=== PATIENT | female | born 1955 | race African-American/Black ===

== ENCOUNTER 2019-05-19 06:30 | Day surgery (SDC) | payer MEDICARE, OTHER ==
--- NOTE | 2019-05-14 13:35 | Pre-Procedure Note/Attestation ---
Pre-Procedure Note/Attestation Complete Prior to Procedure Planned Procedure: left Procedure Narrative: Cataract extraction with IOL implant left eye Indications for Procedure Pre-Operative Diagnosis: Cortical/Nuclear sclerotic cataract left eye Attestation I attest that I discussed the nature of the procedure; its benefits; risks and complications; and alternatives (and the risks and benefits of such alternatives ), prior to the procedure, with the patient (or the patient's legal auto service representative). I attest that, if there was a reasonable possibility of needing a blood transfusion, the patient (or the patient's legal auto service representative) was given the [facility] standardized written summary, pursuant to the Wali Bhanu Blood Safety Act ([place] Health and Safety Code # 1645, as amended). I attest that I re-evaluated the patient just prior to the surgery and that there has been no change in the patient's H&P, except as documented below: Juan David Roe MD May 14, 2019 13:35
--- NOTE | 2019-05-14 13:37 | Opthalmology H&P ---
Ophthalmology H&P H&P Chief Complaint: decreased vision in left eye HPI Vision Affects Ability to: read, focus/use eyes together, manage personal affairs HPI Narrative Blurry vision Exam Visual Acuity: OD 20/50 OS 20/60 Tension: OD 12 OS 13 Eye Exam: normal OU: external exam, palpebral fissure-width, marginal reflex distance, levator function, corneas, anterior chambers, fundus exam; findings: lens - CC/NS Cataracts OU Assessment/Plan Treatment Plan: cataract extraction w/ lens implant Goals of Treatment: improvement of vision, enhance quality of life Attestation Attestation The risks and benefits of the surgery as well as alternative procedures were explained to the patient in detail. Juan David Roe MD May 14, 2019 13:37
[~2019-05-19] VITALS: Ht 160 cm; Wt 63.5 kg
[2019-05-19] VITALS (7 sets, daily range): BP systolic 112–123; BP diastolic 73–83
[2019-05-19] MEDS ORDERED: Proparacaine 0.5% Opth Soln 15ml LEFT EYE ONE (07:00)
[2019-05-19] MEDS ORDERED: Akten 3.5% 1ml Btl LEFT EYE ONE (07:00)
[2019-05-19] MEDS ORDERED: Tetracaine 0.5% Opth 4ml Soln LEFT EYE ONE (07:00)
[2019-05-19] MEDS ORDERED: CHLORTHALIDONE25 MG ORAL (07:55)
[2019-05-19] MEDS ORDERED: MULTIVITAMINS1 EAC2 ORAL (07:55)
[2019-05-19] MEDS ORDERED: POTASSIUM99 M3 PO (07:56)
[2019-05-19] MEDS ORDERED: vit D3 PO (07:59)
[2019-05-19] MEDS ORDERED: CALCIUM500 M3 PO (07:59)
[2019-05-19] MEDS: Diclofenac Sod 0.1% Op Soln LEFT EYE SCH ×3 (08:01→08:26)
[2019-05-19] MEDS: Cyclopentolate 1% Opth Sol 2ml LEFT EYE SCH ×3 (08:01→08:27)
[2019-05-19] MEDS: Tobramycin Op Soln 0.3% 5ml LEFT EYE SCH ×3 (08:01→08:26)
[2019-05-19] MEDS: Phenylephrine 10% Opth Soln 5ml LEFT EYE SCH ×3 (08:01→08:27)
[2019-05-19] MEDS: Tropicamide 1% Opth 15ml Soln LEFT EYE SCH ×3 (08:01→08:26)
[2019-05-19] MEDS ORDERED: LR 1000ml 1,000 ML IVLG SCH (09:48)
--- NOTE | 2019-05-19 09:51 | Anethesia Preoperative Eval ---
Anesthesia Pre-op PMH/ROS General Date of Evaluation: May 19, 2019 Time of Evaluation: 10:19 Anesthesiologist: Caryl ASA Score: ASA 3 Mallampati Score Class I : Soft palate, uvula, fauces, pillars visible Class II: Soft palate, uvula, fauces visible Class III: Soft palate, base of uvula visible Class IV: Only hard plate visible Mallampati Classification: Class II Surgeon: Jyothi Diagnosis: Cataract OS Surgical Procedure: Cat Ext IOL OS Anesthesia History: none Family History: no anesthesia problems Allergies: Coded Allergies: No Known Allergies (Unverified , 05/14/19) Medications: see eMAR Patient NPO?: Yes Past Medical History Cardiovascular: Reports: HTN, other - HL HEENT: Reports: cataract (L), cataract (R) Hematology/Immune: Reports: other - Hx Polioi Anesthesia Pre-op Phys. Exam Physician Exam Last Vital Signs Date Time Temp Pulse Resp B/P (MAP) Pulse Ox O2 Delivery O2 Flow Rate FiO2 05/19/19 08:19 Room Air 05/19/19 08:05 97.7 70 18 115/73 97 Constitutional: NAD Neurologic: CN 2-12 intact Cardiovascular: RRR Respiratory: CTA Gastrointestinal: S/NT/ND Airway Exam Mallampati Score: Class II MO: limited ROM: limited Teeth: missing, intact Anesthesia Pre-op A/P Risk Assessment & Plan Assessment: ASA 3 Plan: GA Status Change Before Surgery: No Hermes Hutson MD May 19, 2019 09:51
--- NOTE | 2019-05-19 09:52 | Immediate Post-Op Evaluation ---
Immediate Post-Op Evalulation Immediate Post-Op Evalulation Procedure: Cat Ext IOL OS Date of Evaluation: May 19, 2019 Time of Evaluation: 11:12 IV Fluids: 700 LR Blood Products: 0 Estimated Blood Loss: 1 Urinary Output: 0 Blood Pressure Systolic: 126 Blood Pressure Diastolic: 75 Pulse Rate: 68 Respiratory Rate: 16 O2 Sat by Pulse Oximetry: 98 Temperature (Fahrenheit): 98.4 Pain Score (1-10): 1 Nausea: No Vomiting: No Complications 0 Patient Status: awake, reacts, patent, none Hydration Status: adequate Hermes Hutson MD May 19, 2019 09:52
--- NOTE | 2019-05-19 09:53 | 48 Hour Post Anesthesia Eval ---
Post Anesthesia Evaluation Procedure: Cat Ext IOL OS Date of Evaluation: May 19, 2019 Time of Evaluation: 13:21 Blood Pressure Systolic: 117 0: 73 Pulse Rate: 71 Respiratory Rate: 18 Temperature (Fahrenheit): 98.4 O2 Sat by Pulse Oximetry: 96 Airway: patent Nausea: No Vomiting: No Pain Intensity: 1 Hydration Status: adequate Cardiopulmonary Status: Stable Mental Status/LOC: patient returned to baseline Follow-up Care/Observations: 0 Post-Anesthesia Complications: 0 Follow-up care needed: ready to discharge Hermes Hutson MD May 19, 2019 09:53
[2019-05-19] MEDS ORDERED: fentaNYL 100 mcg/2 mL IV PRN (10:00)
[2019-05-19] MEDS ORDERED: Dexamethasone 4mg/ml vial ONE (10:00)
[2019-05-19] MEDS ORDERED: Propofol 200mg/20ml IV ONE (10:00)
[2019-05-19] MEDS ORDERED: Pilocarpine 1% Opth 15ml Soln ONE (10:00)
[2019-05-19] MEDS ORDERED: DiphenhydrAMINE 50mg/ml Inj IVP PRN (10:00)
[2019-05-19] MEDS ORDERED: LORazepam Inj 2mg/ml 1ml IV PRN (10:00)
[2019-05-19] MEDS ORDERED: LR 1000ml ONE (10:00)
[2019-05-19] MEDS ORDERED: Polysporin Oint 15gm TOPIC ONE (10:00)
[2019-05-19] MEDS ORDERED: Meperidine 50mg/ml Inj(FOR RIGORS ONLY) IVP PRN (10:00)
[2019-05-19] MEDS ORDERED: oxyCODONE HCL/Acetaminophen 5/325mg ORAL PRN (10:00)
[2019-05-19] MEDS ORDERED: Midazolam 2mg/2ml Inj IVP PRN (10:00)
[2019-05-19] MEDS ORDERED: Labetalol 5mg/ml 20ml vial IV PRN (10:00)
[2019-05-19] MEDS ORDERED: HYDROcodone/Acetamin 5/325 tab ORAL PRN (10:00)
[2019-05-19] MEDS ORDERED: Atropine Sulfate 0.4mg/ml inj IVP PRN (10:00)
[2019-05-19] MEDS ORDERED: Ketorolac 30mg Inj IV PRN ×2 (10:00)
[2019-05-19] MEDS ORDERED: HYDROcodone/Acetamin 7.5/325 tab ORAL PRN (10:00)
[2019-05-19] MEDS ORDERED: Metoclopramide 10mg/2ml Inj IVP PRN (10:00)
[2019-05-19] MEDS ORDERED: Hydromorphone 0.5mg/0.5ml inj IVP PRN (10:00)
[2019-05-19] MEDS ORDERED: Pred Forte 1% Opth Susp 1ml ONE (10:00)
[2019-05-19] MEDS ORDERED: Lidocaine 1% MPF 10mg/ml 5ml ONE (10:45)
[2019-05-19] MEDS ORDERED: BSS 15ml BTL ONE (13:20)
[2019-05-19] MEDS ORDERED: Povidone-Iodine 5% opth solution ONE (13:20)
[2019-05-19] MEDS ORDERED: BSS 500ml btl ONE (13:20)
[2019-05-19] MEDS ORDERED: EPINEPHrine 1mg/1ml Amp ONE (13:20)
[2019-05-19] MEDS ORDERED: Sodium Hyaluronate 14 mg/ml 0.85ml ONE (13:20)
--- NOTE | 2019-05-20 12:49 | Brief Operative Note ---
Immediate Post Operative Note Operative Note Chief Complaint: Blurry vision Pre-op Diagnosis: Cortical/Nuclear sclerotic cataract left eye Procedure: Cataract extraction with IOL implant left eye Post-op Diagnosis: Pseudophakia OS Findings: consistent w/pre-op dx studies Surgeon: Juan David Roe MD Anesthesiologist: Hermes Hutson MD Anesthesia: MAC Specimen: none Complications: none Condition: stable Fluids: LR Estimated Blood Loss: none Drains: none Implant(s) used?: Yes - IOL OS Juan David Roe MD May 20, 2019 12:49
--- NOTE | 2019-05-20 12:52 | Operative Note - PDOC ---
Operative Note Operative Note Date of Operation/Procedure: May 19, 2019 Chief Complaint: Blurry vision Pre-op Diagnosis: Cortical/Nuclear sclerotic cataract left eye Procedure: Cataract extraction with IOL implant left eye Post-op Diagnosis: Pseudophakia OS Operative Findings: consistent w/pre-op dx studies Surgeon: Juan David Roe MD Anesthesiologist: Hermes Hutson MD Anesthesia: MAC Specimen: none Complications: none Condition: stable Fluids: LR Estimated Blood Loss: none Drains: none Implant(s) used?: Yes - IOL OS Indications for Procedure Cortical/Nuclear sclerotic cataract left eye Description of Procedure This patient has been complaining visually significant cataract in the left eye with the best corrected visual acuity of 20/60 under moderate glare conditions worse. The patient complains of difficulties with glare in performing activities of daily living and wants to manage personal affairs with comfort and accuracy and see well enough to move with safety at home and outdoors. The risks, benefits and alternatives of the procedure were discussed with the patient in the office prior to scheduling surgery. All questions from the patient were answered after the surgical procedure was explained in detail. The risks of the procedure as explained to the patient include, but are not limited to, pain, infection, bleeding, loss of vision, retinal detachment, need for further surgery, loss of lens nucleus, double vision, etc. Alternative procedures were discussed which include, to do nothing or seek a second opinion. Informed consent for this procedure was obtained from the patient. The patient was referred to a primary care physician for a cardiopulmonary clearance prior to surgery, after proper evaluation was done patient was properly scheduled for outpatient surgery. The patient was brought to the operating room where the anesthesiologist established I.V. lines and cardiac monitoring leads. Mild intravenous sedation was administered. The patient was then prepared with a 5% solution of povidone -iodine to the conjunctival fornix and lashes, and a 5% solution of povidone- iodine to the lids and periorbital skin. The patient was then draped in the usual sterile fashion. A lid speculum was then placed in the operative eye. A keratome blade was then used to create a biplanar incision into the anterior chamber. Viscoelastics was then instilled into the anterior chamber. A 3-mm single pass clear corneal incision was made just anterior to the vascular arcade of the temporal limbus using a keratome. Anterior capsulorrhexis was created. The nucleus was hydrodissected and hydrodelineated, and was freely movable in the capsular bag. The nucleus was then phacoemulsified. Following the deep groove formation, the lens was split bimanually and epicortex removed under vacuum burst-mode phacoemulsification. Peripheral cortex was removed with the irrigation and aspiration handpiece. The capsular bag was expanded with viscoelastic. The intraocular lens was then inspected for right power and size and thought to be satisfactory. The implant was inspected under the microscope and found to be free of defects. The implant was inserted into the cartridge system under viscoelastic and placed in the capsular bag. The trailing haptic was positioned with the cartridge system. Viscoelastics was removed from the anterior chamber using the irrigation and aspiration unit. The corneal wound was then tested for leaks and none were found. The lid speculum were then removed. Sponge and needle counts were correct. An eye patch and shield were placed over the operative eye. The patient was taken to the recovery room in stable condition. There were no complications. The patient tolerated the procedure well. The patient was then transferred to the ambulatory surgery unit in stable and satisfactory condition , was given detailed written instructions and asked to follow up in the office the next day. Juan David Roe MD May 20, 2019 12:52
== END 2019-05-19 12:00 | disposition home or self-care (01) ==
LOC: SUR 06:30
DX: H25.12 Age-related nuclear cataract, left eye (principal); H25.012 Cortical age-related cataract, left eye; I10 Essential (primary) hypertension
CPT/HCPCS: 66984; J0171; J1100; J2250; J2704; J3370; J7120; V2632; 94003; 94150